=== PATIENT | male | born 2000 | race Caucasian/White ===

== ENCOUNTER → 2020-08-09 | Outpatient (CLI) | payer OTHER ==
--- NOTE | 2020-08-09 15:57 | EKG ---
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: SBULKAYE : 2000 Requested By: Kermit Lawson Order Number: [id number] MD: Stanford Luong Measurements Intervals [place] Rate: 56 P: 63 OR: 157 QRS: 38 QRSD: 99 T: 26 QT: 421 QTc: 407 Interpretive Statements Sinus rhythm Probable left ventricular hypertrophy J Point elev, probable normal early repol pattern Baseline wander in lead(s) I No previous ECG available for comparison Electronically Signed On 08-09-2020 15:57:24 [employer] by Stanford Luong [email or web address] <ELECTRONICALLY SIGNED> By: Stanford Luong MD, [facility] 08/09/20 1557 1024 [facility] Stanford Luong MD, FACC /EPI
== END ==
LOC: CV 09:53
PROVIDERS: ATTEND Pediatrics
DX: I49.9 Cardiac arrhythmia, unspecified (principal); R00.0 Tachycardia, unspecified; F41.9 Anxiety disorder, unspecified